=== PATIENT | male | born 1955 | race Caucasian/White ===

== ENCOUNTER 2023-10-04 14:22 | Outpatient (REF) | payer OTHER, SELFPAY ==
--- NOTE | ~2023-10-04 | CT_ITS ---
EXAMINATION: CT INNER EAR TEMPORAL BONES WITHOUT AND WITH CONTRAST CLINICAL INFORMATION: Cerumen impaction. Sudden right-sided hearing loss. COMPARISON: None available. TECHNIQUE: Multidetector helical imaging was performed in the axial plane without and following the administration of 85 mL of Gadavist intravenous contrast. Generation of oblique axial and coronal reformatted projections. This CT examination was performed using dose optimization techniques as appropriate, variously including the following: *Automated exposure control. *Adjustment of mA and/or kV according to patient size (this includes techniques or standardized protocols for targeted exams where dose is matched to indication/reason for exam; i.e. extremities or head). *Use of iterative reconstruction technique. DLP: 306 mGy-cm FINDINGS: Right Temporal Bone: The external auditory canal is normal in appearance. The tympanic membrane is normal. The ossicular chain is intact. No soft tissue abnormality within the middle ear. The mastoid antrum and additional mastoid air cells remain well aerated. The sigmoid plate is intact. Normal ossification of the bony labyrinth. Normal appearance of the cochlea, vestibule, and semicircular canals. The vestibular aqueduct is normal. Normal appearance of the labyrinthine, geniculate, tympanic, and mastoid segments of the facial nerve. Normal appearance of the internal auditory canal. The cochlear aperture is normal. Normal appearance of the carotid canal and jugular foramen. Left Temporal Bone: The external auditory canal is normal in appearance. The tympanic membrane is normal. The ossicular chain is intact. No soft tissue abnormality within the middle ear. The mastoid antrum and additional mastoid air cells remain well aerated. The sigmoid plate is intact. Normal ossification of the bony labyrinth. Normal appearance of the cochlea, vestibule, and semicircular canals. The vestibular aqueduct is normal. Normal appearance of the labyrinthine, geniculate, tympanic, and mastoid segments of the facial nerve. Normal appearance of the internal auditory canal. The cochlear aperture is normal. Normal appearance of the carotid canal and jugular foramen. Other: Normal opacification of the transverse/sigmoid sinuses. No abnormal vascular structures demonstrated within the middle/inner ear ears. The temporomandibular joints are normal in appearance bilaterally. No demonstrated intracranial abnormalities of the visualized skull base. No significant abnormalities of the visualized orbits. The visualized paranasal sinuses are clear. No abnormal contours of the visualized pharynx. CT/CT internal auditory canals BI IMPRESSION: Normal CT appearance of the temporal bones. No demonstrated abnormal vascular structures within the middle/inner ear ears.
[2023-10-04] MEDS: iohexoL 350 MG/ML 100 ML INFUS..BTL IV (15:21)
[2023-10-05 06:27] LABS: Creatinine POC 0.7 mg/dL (0.5-1.4); GFR POC > 60
== END 2023-10-04 14:23 | disposition home or self-care (01) ==
LOC: HO.CT 14:22
PROVIDERS: PCP Family Medicine; Visit Provider Family Medicine
DX: H91.21 Sudden idiopathic hearing loss, right ear (principal)
CPT/HCPCS: 70480; 82565; Q9967